=== PATIENT | male | born 1955 | race Caucasian/White ===

== ENCOUNTER → 2018-04-20 | Outpatient (CLI) | payer OTHER | LOC: M.ULTRA 09:00 | DX: R22.1 Localized swelling, mass and lump, neck (principal) ==

== ENCOUNTER → 2018-04-28 | Outpatient (CLI) | payer OTHER ==
[2018-04-28 09:01] LABS: CALCIUM 9.5 mg/dL (8.5-10.1); CREATININE 1.1 mg/dL (0.6-1.3); POTASSIUM 3.4 mmol/L (3.5-5.1)
== END ==
LOC: M.LAB 08:30 → M.CT 09:30
PROVIDERS: Family Medicine
DX: R22.1 Localized swelling, mass and lump, neck (principal)